=== PATIENT | female | born 1990 | race American Indian/Alaskan Native ===

== ENCOUNTER 2016-11-28 16:48 | Emergency (ER) | payer OTHER ==
[2016-11-28 17:05] VITALS: BP 99/58; PULSE 72; RESP 20; TEMP 98.1; O2SAT 99
[2016-11-28] MEDS ORDERED: Sodium Chloride 0.9% 1,000 ML IV ONE (17:22)
--- NOTE | 2016-11-28 17:32 | C.PDOC ---
History Of Present Illness 26 y/o female presents to ED status post syncopal episode just prior to arrival. Patient notes she donated blood earlier today and fainted while at [employer]. She states that she feels much better on arrival to ED and after drinking orange juice. Denies history of anemia. Otherwise, denies headache, dizziness, nausea, vomiting, or other complaints. No head injury or LOC. Denies any pain or other complaints. Time Seen by Provider: 11/28/16 17:21 Chief Complaint (Nursing): Syncope History Per: Patient History/Exam Limitations: no limitations Current Symptoms Are (Timing): Still Present Fall Associated With With Symptoms: Yes Recent travel outside of the [place]: No Past Medical History Reviewed: Historical Data, Nursing Documentation, Vital Signs Vital Signs: Last Vital Signs Temp 98.1 F 11/28/16 16:57 Pulse 72 11/28/16 16:57 Resp 20 11/28/16 16:57 BP 99/58 L 11/28/16 16:57 Pulse Ox 99 11/28/16 17:37 - Medical History PMH: No Chronic Diseases Surgical History: No Surg Hx Family History: States: Unknown Family Hx - Social History Hx Alcohol Use: No Hx Substance Use: No - Immunization History Hx Tetanus Toxoid Vaccination: No Hx Influenza Vaccination: No Hx Pneumococcal Vaccination: No Review Of Systems Except As Marked, All Systems Reviewed And Found Negative. Constitutional: Negative for: Fever, Chills Cardiovascular: Negative for: Chest Pain, Palpitations Respiratory: Negative for: Cough, Shortness of Breath, Wheezing Gastrointestinal: Negative for: Nausea, Vomiting, Abdominal Pain Skin: Negative for: Rash Neurological: Negative for: Dizziness Physical Exam - Physical Exam Appears: Non-toxic, No Acute Distress Skin: Normal Color, Warm, Dry, No Pale Head: Atraumatic, Normacephalic Eye(s): bilateral: Normal Inspection, PERRL, EOMI Oral Mucosa: Moist Neck: Normal ROM, Supple Chest: Symmetrical Cardiovascular: Rhythm Regular, No Murmur Respiratory: Normal Breath Sounds, No Rales, No Rhonchi, No Wheezing Gastrointestinal/Abdominal: Soft, No Tenderness, No Guarding, No Rebound Back: Normal Inspection Extremity: Normal ROM, Capillary Refill (< 2 sec. ) Extremity: Bilateral: Normal Color And Temperature Pulses: Left Radial: Normal, Right Radial: Normal Neurological/Psych: Oriented x3, Normal Speech, Normal Cognition ED Course And Treatment O2 Sat by Pulse Oximetry: 99 (RA) Pulse Ox Interpretation: Normal Medical Decision Making Medical Decision Making: Patient declines bloodwork, stating she is feeling well, and feels comfortable being discharged. On re-evaluation, patient has steady gait, with no dizziness, nausea, or other complaints. Advised follow up with PMD for further evaluation. Disposition Counseled Patient/Family Regarding: Diagnosis, Need For Followup - Disposition Disposition: HOME/ ROUTINE Disposition Time: 17:40 Condition: STABLE Additional Instructions: Please drink fluids and rest Return to ER if you develop any worsening symptoms including dizziness, chest pain, shortness of breath or other fainting episode. Instructions: Syncope (DC) - POA Present On Arrival: None - Clinical Impression Clinical Impression: Vasovagal syncope - PA / SIGNAL MANAGER / Resident Statement MD/DO has reviewed & agrees with the documentation as recorded. - Scribe Statement The provider has reviewed the documentation as recorded by the Scribe Irvin Lino All medical record entries made by the Scribe were at my direction and personally dictated by me. I have reviewed the chart and agree that the record accurately reflects my personal performance of the history, physical exam, medical decision making, and the department course for this patient. I have also personally directed, reviewed, and agree with the discharge instructions and disposition.
== END 2016-11-28 18:05 | disposition home or self-care (01) ==
LOC: C.ER 16:48
DX: R55 Syncope and collapse (principal)